=== PATIENT | female | born 1985 | race African-American/Black ===

== ENCOUNTER 2021-05-12 23:54 | Emergency (ER) | payer SELFPAY ==
[2015-09-13 12:50] VITALS: BP 107/60
[2021-05-13] MEDS ORDERED: oxyCODONE/APAP 5/325 1 TAB TABLET PO ONE (01:00)
[2021-05-13] MEDS ORDERED: LIDOCAINE 2% Multi-Dose 20 ML VIAL. IJ ONE (01:00)
[2021-05-13] MEDS ORDERED: LIDOCAINE 2%/EPI 1:100,000 20 ML VIAL. ONE (01:07)
[2021-05-13] MEDS ORDERED: oxyCODONE/APAP 5/325 1 TAB TABLET ONE (01:08)
[2021-05-13] MEDS ORDERED: NEOMY/BACITR/POLYMYXIN OINT PACKET. TP ONE (03:03)
--- NOTE | 2021-05-13 07:14 | RAD ---
EXAM: Right foot 3 views. HISTORY: First toe injury. COMPARISON: None. FINDINGS: Three views of the right foot are obtained. There are multiple small chip fractures at the first distal phalangeal tuft. Irregularity of the over lying soft tissues is consistent with a nailbed injury. A 2 mm radiopaque foreign body cannot be excl uded along the lateral aspect of the distal phalangeal tuft. Changes of first metatarsal osteotomy and bunionectomy with 2 fixation screws are noted. Joint spaces and alignment are maintained. IMPRESSION: 1. Open chip fracture of the first distal phalangeal tuft with a nailbed injury. A 2 mm radiopaque fo reign body is suspected at the tip of the first distal phalanx. Electronically signed by: Pratik Cordero MD (05/13/2021 7:12 AM) [facility]
== END 2021-05-13 02:15 | disposition home or self-care (01) ==
LOC: ER 23:54
DX: S92.911A Unspecified fracture of right toe(s), initial encounter for closed fracture (principal); W20.8XXA Other cause of strike by thrown, projected or falling object, initial encounter; Y93.89 Activity, other specified; Y92.89 Other specified places as the place of occurrence of the external cause; Y99.8 Other external cause status
CPT/HCPCS: 73630; 99283